=== PATIENT | female | born 1955 | race Caucasian/White ===

== ENCOUNTER → 2023-02-20 13:55 | Outpatient (BNVA) | payer MEDICARE, SELFPAY | PROVIDERS: PCP Nurse Practitioner Family; Visit Provider Nurse Practitioner Family | DX: E03.9 Hypothyroidism, unspecified (principal); E78.5 Hyperlipidemia, unspecified; I10 Essential (primary) hypertension | CPT/HCPCS: 80053; 80061; 84443; 85025 ==

== ENCOUNTER → 2023-05-17 09:30 | Outpatient (BNVA) | payer MEDICARE, SELFPAY | PROVIDERS: PCP Nurse Practitioner Family; Referring Provider Nurse Practitioner Family; Visit Provider Psychiatry & Neurology Neurology | DX: R41.3 Other amnesia (principal); E55.9 Vitamin D deficiency, unspecified | CPT/HCPCS: 0346U; 36415; 82306; 82542; 82607; 82746; 83735; 83921; 99203 ==

== ENCOUNTER 2023-05-30 09:41 | Oncology outpatient (recurring) (ONCR) | payer MEDICARE, SELFPAY ==
[2023-05-30 11:20] LABS: Basophils % 0.6 %; Eosinophils # 0.3 10^3/uL (0.0-0.8); Eosinophils % 4.2 %; Hematocrit 43.8 % (36-47); Lymphocytes # 1.9 10^3/uL (0.8-4.8); Lymphocytes % 28.1 %; Mean Corpuscular HGB Conc 32.9 g/dL (30-55); Mean Corpuscular Hemoglobin 30.8 pg (27-33); Mean Corpuscular Volume 93.6 fl (85-98); Mean Platelet Volume 9.9 fL (7.4-10.4); Monocytes # 0.5 10^3/uL (0.2-0.9); Monocytes % 7.2 %; Neutrophils # 4.09 10^3/uL (1.8-7.7); Neutrophils % 59.8 %; Nucleated Red Blood Cells % 0 %; Platelet Count 194 10^3/cmm (157-399); Red Blood Count 4.68 10^6/uL (3.85-5.65); White Blood Count 6.84 10^3/uL (3.29-11.43)
[2023-05-30 11:34] LABS: Alanine Aminotransferase 11 U/L (0-33); Albumin Level 4.2 g/dL (3.5-5.2); Alkaline Phosphatase 110 U/L (35-105); Anion Gap 12.6 (5-19); Aspartate Amino Transferase 19 U/L (0-32); Blood Urea Nitrogen 21 mg/dL (8-23); Calcium 9.5 mg/dL (8.5-10.5); Carbon Dioxide 30 mmol/L (22-29); Chloride 101 mmol/L (98-107); Globulin 3.2 g/dL (1.3-4.6); Glomerular Filtration Rate 71.3 mL/min (90-130); Glucose 96 mg/dL (65-115); Osmolality Calculated 291 mOsm/kg (285-295); Potassium 4.6 mmol/L (3.5-5.1); Sodium 139 mmol/L (136-145); Total Bilirubin 1.1 mg/dL (0.15-1.2); Total Protein 7.4 g/dL (6.6-8.7)
== END 2023-06-21 23:59 | disposition home or self-care (01) ==
PROVIDERS: Internal Medicine; PCP Nurse Practitioner Family; Visit Provider Internal Medicine Medical Oncology
DX: E53.8 Deficiency of other specified B group vitamins (principal); Z79.899 Other long term (current) drug therapy
CPT/HCPCS: 36415; 80053; 85025; 99203

== ENCOUNTER → 2023-06-28 12:44 | Outpatient (BNVA) | payer MEDICARE, SELFPAY | PROVIDERS: PCP Nurse Practitioner Family; Visit Provider Psychiatry & Neurology Neurology | DX: R41.3 Other amnesia (principal) | CPT/HCPCS: 95812; 95813; 95816 ==

== ENCOUNTER → 2023-08-02 09:16 | Outpatient (BNVA) | payer MEDICARE, SELFPAY | PROVIDERS: PCP Nurse Practitioner Family; Visit Provider Psychiatry & Neurology Neurology | DX: R41.3 Other amnesia (principal); E53.8 Deficiency of other specified B group vitamins | CPT/HCPCS: 99212 ==

== ENCOUNTER → 2023-08-08 10:02 | Outpatient (BNVA) | payer MEDICARE, SELFPAY | PROVIDERS: PCP Nurse Practitioner Family; Visit Provider Nurse Practitioner Family | DX: I83.91 Asymptomatic varicose veins of right lower extremity (principal); E03.9 Hypothyroidism, unspecified; R13.10 Dysphagia, unspecified; E53.8 Deficiency of other specified B group vitamins; Z86.39 Personal history of other endocrine, nutritional and metabolic disease; Z79.899 Other long term (current) drug therapy | CPT/HCPCS: 80053; 80061; 83036; 84443; 85025 ==

== ENCOUNTER 2023-08-20 13:41 | Outpatient (CLI) | payer MEDICARE, SELFPAY ==
--- NOTE | 2023-08-20 14:00 | USCV_ITS ---
Vijaya Engle Age: 67 Gender: F : 1955 Exam Date: 08/20/2023 14:26 Ordering Phys: Margaret Alvarez CORE STRIPPER-Hawa Technologist: Keyon Mark [place] [facility] [place]: Rt leg varicosities PROCEDURES: Venous duplex imaging was performed in only the right lower extremity. The following venous structures were evaluated: common femoral vein, profunda vein, proximal portion of the greater saphenous vein, superficial femoral vein, and the popliteal vein. In addition, the posterior tibial and peroneal trunk were evaluated. FINDINGS: Normal 2-D Doppler and augmentation and compressibility throughout the lower extremity venous structures. Additional imaging through the proximal calf veins also reveals no thrombus. Limited evaluation of the greater saphenous vein is patent with no thrombus. CONCLUSIONS No DVT right lower extremity. Dr. Imelda Haas DO (Electronically Signed) Final Date: 20 August 2023 16:09 S
== END 2023-08-20 13:42 | disposition home or self-care (01) ==
LOC: RAD 13:42
PROVIDERS: PCP Nurse Practitioner Family; Visit Provider Nurse Practitioner Family
DX: I83.91 Asymptomatic varicose veins of right lower extremity (principal)
CPT/HCPCS: 93971

== ENCOUNTER → 2023-09-17 09:36 | Outpatient (BNVA) | payer MEDICARE, SELFPAY | PROVIDERS: PCP Nurse Practitioner Family; Referring Provider Nurse Practitioner Family; Visit Provider Thoracic Surgery (Cardiothoracic Vascular Surgery) | DX: I83.93 Asymptomatic varicose veins of bilateral lower extremities (principal) | CPT/HCPCS: 99202 ==

== ENCOUNTER 2023-09-25 08:46 | Outpatient (CLI) | payer MEDICARE, SELFPAY ==
--- NOTE | 2023-09-25 09:15 | USCV_ITS ---
Vijaya Engle Age: 67 Gender: F : 1955 Exam Date: 09/25/2023 09:18 Ordering Phys: Benjamin Dumont MD (Andy) ([email or web address]) Technologist: JOEY [place] [facility] [place]: H[place]ORY: Varicose veins. PROCEDURES: Venous duplex imaging was performed in bilateral lower extremities. Serial compression, augmentation maneuvers, and spectral Doppler flow evaluation were performed. An evaluation for venous insufficiency was also completed. FINDINGS: The veins were found to be easily compressible with spontaneous blood flow. On the right side, venous reflux were noted at the saphenofemoral junction, distal and below-knee greater saphenous vein segments. The venous segments were measuring 0.4 and 0.3 cm in diameter at the distal and below-knee segments and were at a depth of 1.4 and 0.5 cm respectively from the surface. The reflux time was 2.88, 5 and 5 seconds at the saphenofemoral junction, distal and below-knee segments respectively. On the left side, significant reflux were noted at the saphenofemoral junction and mid greater saphenous vein segment. The mid to greater saphenous vein segment was found to be at the depth of 2.1 cm, measuring 0.3 cm in diameter. The reflux time where 3 and 3.9 seconds at the saphenofemoral junction and mid greater saphenous vein segments respectively CONCLUSIONS 1. No evidence of DVT in the above-mentioned identifiable veins. 2. Significant venous reflux of greater than 500 ms were noted at the right saphenofemoral junction, distal and below-knee segments of the greater saphenous vein. The below-knee greater saphenous vein segment was found to be superficial. 3. On the left side Significant venous reflux of greater than 500 ms were noted at the saphenofemoral junction and at the mid greater saphenous vein segments. The details of the venous dimension, reflux time and the depth from the surface, please refer to the findings above. Dr Geraldo Barron MD FAC (Electronically Signed) Final Date: 27 September 2023 09:15 S
== END 2023-09-25 08:47 | disposition home or self-care (01) ==
LOC: RAD 08:46
PROVIDERS: PCP Nurse Practitioner Family; Visit Provider Thoracic Surgery (Cardiothoracic Vascular Surgery)
DX: I83.93 Asymptomatic varicose veins of bilateral lower extremities (principal)
CPT/HCPCS: 93970

== ENCOUNTER 2023-10-02 09:01 | Outpatient (CLI) | payer MEDICARE, SELFPAY ==
--- NOTE | 2023-10-02 09:00 | MM_ITS ---
WS: [id number] BILATERAL 3D TOMOSYNTHESIS DIGITAL SCREENING MAMMOGRAPHY WITH CAD CLINICAL INFORMATION: SCREENING HISTORY: Screening mammogram. No current complaints. COMPARISON: 2020 TECHNIQUE: Bilateral CC and MLO views. FINDINGS: Loop recorder visualized LEFT breast. Scattered fibroglandular densities bilaterally. No suspicious focal mass, asymmetry, calcifications, or architectural distortion. No evidence of malignancy. Few incidental punctate calcifications. IMPRESSION: MM/[place] [id number] BI-RADS: 2-Benign FOLLOW UP: 1 Year Follow-up Recommend return to annual screening mammography.
== END 2023-10-02 09:02 | disposition home or self-care (01) ==
LOC: MOBLMAM 09:12
PROVIDERS: PCP Nurse Practitioner Family; Visit Provider Nurse Practitioner Family
DX: Z12.31 Encounter for screening mammogram for malignant neoplasm of breast (principal)
CPT/HCPCS: 77063; 77067

== ENCOUNTER 2023-10-17 08:34 | Outpatient (CLI) | payer MEDICARE, SELFPAY ==
--- NOTE | 2023-10-17 08:38 | FL_ITS ---
WS: [id number] Exam: FL barium swallow [id number] Date/Time of Exam: 10/17/2023 9:31 AM Reason For Exam: Dysphagia Fluoroscopy time: 2min [id number] minutes # of spot films: Oropharyngeal phase of swallowing was normal. The esophagus is smooth in contour. No indication of es ophageal stricture or mass. Grossly normal motility noted throughout the esophagus. The esophagus was not displaced. No hiatal hernia was demonstrated. No reflux observed during fluoroscopy. IMPRESSION: 1. Unremarkable esophagram.
--- NOTE | 2023-10-17 08:38 | CT_ITS ---
WS: [id number] CT NECK TECHNIQUE: Contrast-enhanced CT of the neck with coronal and sagittal reformatted images. CLINICAL INFORMATION: Dysphagia COMPARISON: None. DLP: 163.[address] [facility] use at least one of these dose optimization techniques: automated e xposure control; mA and/or kV adjustment per patient size (includes targeted exams where dose is matc hed to clinical indication); or iterative reconstruction. FINDINGS: Partially visualized RIGHT temporal craniotomy with low-attenuation change in the RIGHT temporal lobe . No prior intracranial imaging for comparison. This could be followed up with CT. Paranasal sinuses and mastoid air cells are well aerated. Parotid glands are normal. Normal submandibular glands. Flory l posterior nasopharynx and parapharyngeal fat. No evidence of supraglottic or glottic mass. Normal s ubglottic airway. Normal vallecula and piriform sinuses. Slight hazy atelectasis in the lung apices. No cervical lymphadenopathy. IMPRESSION: 1. Normal salivary glands. 2. No evidence of supraglottic or glottic mass. Normal subglottic airway. 3. No cervical lymphadenopathy. 4. Partially visualized RIGHT temporal craniotomy with underlying encephalomalacia in the RIGHT temp oral lobe. No prior comparisons. This be further evaluated with CT if indicated.
[2023-10-17 09:14] LABS: Blood Urea Nitrogen 13 mg/dL (8-23); Glomerular Filtration Rate 71.3 mL/min (90-130)
[2023-10-17] MEDS: iohexol 350 mg/mL 500 mL Btl (per mL) IV (09:23)
== END 2023-10-17 08:35 | disposition home or self-care (01) ==
LOC: RAD 08:34
PROVIDERS: PCP Nurse Practitioner Family; Visit Provider Specialist
DX: R13.10 Dysphagia, unspecified (principal); G93.89 Other specified disorders of brain
CPT/HCPCS: 70491; 74220; 82565; 84520; Q9967

== ENCOUNTER 2023-10-18 12:48 | Oncology outpatient (recurring) (ONCR) | payer MEDICARE, SELFPAY ==
[2023-10-18 13:55] LABS: Basophils % 0.6 %; Eosinophils # 0.3 10^3/uL (0.0-0.8); Eosinophils % 5.1 %; Hematocrit 44.1 % (36-47); Lymphocytes # 2.2 10^3/uL (0.8-4.8); Lymphocytes % 32.4 %; Mean Corpuscular HGB Conc 33.3 g/dL (30-55); Mean Platelet Volume 9.9 fL (7.4-10.4); Monocytes # 0.4 10^3/uL (0.2-0.9); Monocytes % 6.3 %; Neutrophils # 3.73 10^3/uL (1.8-7.7); Neutrophils % 55.5 %; Nucleated Red Blood Cells % 0 %; Platelet Count 162 10^3/cmm (157-399); Red Blood Count 4.74 10^6/uL (3.85-5.65); Red Cell Distribution Width 13.7 % (12.1-15.1); White Blood Count 6.72 10^3/uL (3.29-11.43)
[2023-10-18 14:17] LABS: Alanine Aminotransferase 9 U/L (0-33); Albumin Level 4.1 g/dL (3.5-5.2); Alkaline Phosphatase 116 U/L (35-105); Anion Gap 12.3 (5-19); Aspartate Amino Transferase 17 U/L (0-32); Blood Urea Nitrogen 15 mg/dL (8-23); Calcium 9.4 mg/dL (8.5-10.5); Carbon Dioxide 29 mmol/L (22-29); Chloride 104 mmol/L (98-107); Globulin 3.3 g/dL (1.3-4.6); Glomerular Filtration Rate 62.3 mL/min (90-130); Glucose 107 mg/dL (65-115); Osmolality Calculated 293 mOsm/kg (285-295); Potassium 4.3 mmol/L (3.5-5.1); Sodium 141 mmol/L (136-145); Total Bilirubin 1.1 mg/dL (0.15-1.2); Total Protein 7.4 g/dL (6.6-8.7)
[2023-10-18 14:50] LABS: Folate Level 15.8 ng/mL (4.8-37.3)
[2023-10-18 14:56] LABS: Vitamin B12 402 pg/mL (232-1245)
== END 2023-10-21 23:59 | disposition home or self-care (01) ==
PROVIDERS: Internal Medicine; PCP Nurse Practitioner Family; Visit Provider Internal Medicine Medical Oncology
DX: E53.8 Deficiency of other specified B group vitamins (principal); Z79.899 Other long term (current) drug therapy
CPT/HCPCS: 36415; 80053; 82607; 82746; 85025; 99213

== ENCOUNTER → 2023-10-31 09:57 | Outpatient (BNVA) | payer MEDICARE, SELFPAY | PROVIDERS: PCP Nurse Practitioner Family; Visit Provider Specialist | DX: E03.9 Hypothyroidism, unspecified (principal) | CPT/HCPCS: 84439; 84443 ==

== ENCOUNTER 2023-11-09 09:33 | Outpatient (CLI) | payer MEDICARE, SELFPAY ==
--- NOTE | 2023-11-09 09:42 | FL_ITS ---
WS: [id number] Exam: FL barium swallow modifd [id number] Date/Time of Exam: 11/09/2023 10:11 AM Reason For Exam: Other dysphagia Fluoroscopy time: 2min [id number] minutes # of spot films: 0 Modified barium swallow was performed in conjunction with the speech therapy service. Oral pharyngeal phase of swallowing was normal. The patient tolerated all consistencies of barium mix ture foodstuffs without aspiration or penetration. The patient swallowed a barium tablet without diff iculty or complication. IMPRESSION: 1. Unremarkable modified barium swallow test. A separate report and recommendations will follow from the speech therapy service.
== END 2023-11-09 09:34 | disposition home or self-care (01) ==
LOC: RAD 09:35
PROVIDERS: PCP Nurse Practitioner Family; Visit Provider Specialist
DX: R13.10 Dysphagia, unspecified (principal)
CPT/HCPCS: 74230; 92611

== ENCOUNTER → 2023-12-10 11:30 | Outpatient (BNVA) | payer MEDICARE, SELFPAY | PROVIDERS: PCP Nurse Practitioner Family; Visit Provider Nurse Practitioner Family | DX: R05.9 Cough, unspecified (principal) | CPT/HCPCS: 71046 ==

== ENCOUNTER → 2024-01-30 10:27 | Outpatient (BNVA) | payer MEDICARE, SELFPAY | PROVIDERS: PCP Nurse Practitioner Family; Visit Provider Nurse Practitioner Family | DX: R10.9 Unspecified abdominal pain (principal); E11.9 Type 2 diabetes mellitus without complications; E78.5 Hyperlipidemia, unspecified; I10 Essential (primary) hypertension; E53.8 Deficiency of other specified B group vitamins; R10.2 Pelvic and perineal pain; M79.674 Pain in right toe(s); E03.9 Hypothyroidism, unspecified; G47.30 Sleep apnea, unspecified; R32 Unspecified urinary incontinence; Z86.79 Personal history of other diseases of the circulatory system; I83.91 Asymptomatic varicose veins of right lower extremity | CPT/HCPCS: 80053; 80061; 81000; 82607; 83036; 84443; 85025; 86618; 86666; 86757 ==

== ENCOUNTER → 2024-02-04 13:05 | Outpatient (BNVA) | payer MEDICARE, SELFPAY | PROVIDERS: PCP Nurse Practitioner Family; Visit Provider Psychiatry & Neurology Neurology | DX: E53.8 Deficiency of other specified B group vitamins (principal) | CPT/HCPCS: 99212 ==

== ENCOUNTER → 2024-02-25 10:30 | Outpatient (BNVA) | payer MEDICARE, SELFPAY | PROVIDERS: PCP Nurse Practitioner Family; Visit Provider Podiatrist Foot & Ankle Surgery | DX: M79.674 Pain in right toe(s) (principal); L60.3 Nail dystrophy; M77.41 Metatarsalgia, right foot | CPT/HCPCS: 99203 ==

== ENCOUNTER 2024-04-22 11:21 | Oncology outpatient (recurring) (ONCR) | payer MEDICARE, SELFPAY ==
[2024-04-22 12:05] LABS: Basophils # 0.1 10^3/uL (0.0-0.1); Basophils % 0.9 %; Eosinophils # 0.3 10^3/uL (0.0-0.8); Eosinophils % 4.3 %; Hematocrit 42.7 % (36-47); Lymphocytes # 2.4 10^3/uL (0.8-4.8); Lymphocytes % 34.3 %; Mean Corpuscular Hemoglobin 30.9 pg (27-33); Mean Corpuscular Volume 90.9 fl (85-98); Monocytes # 0.4 10^3/uL (0.2-0.9); Monocytes % 6.3 %; Neutrophils # 3.77 10^3/uL (1.8-7.7); Neutrophils % 54.1 %; Nucleated Red Blood Cells % 0 %; Platelet Count 159 10^3/cmm (157-399); Red Cell Distribution Width 13.5 % (12.1-15.1); White Blood Count 6.97 10^3/uL (3.29-11.43)
[2024-04-22 12:26] LABS: Alanine Aminotransferase 11 U/L (0-33); Albumin Level 3.8 g/dL (3.5-5.2); Alkaline Phosphatase 110 U/L (35-105); Anion Gap 14.2 (5-19); Aspartate Amino Transferase 17 U/L (0-32); Blood Urea Nitrogen 13 mg/dL (8-23); Calcium 9.2 mg/dL (8.5-10.5); Carbon Dioxide 26 mmol/L (22-29); Chloride 104 mmol/L (98-107); Globulin 3.5 g/dL (1.3-4.6); Glucose 98 mg/dL (65-115); Osmolality Calculated 290 mOsm/kg (285-295); Potassium 4.2 mmol/L (3.5-5.1); Sodium 140 mmol/L (136-145); Total Bilirubin 0.7 mg/dL (0.15-1.2); Total Protein 7.3 g/dL (6.6-8.7)
[2024-04-22 12:41] LABS: Vitamin B12 690 pg/mL (232-1245)
[2024-04-22 13:14] LABS: Folate Level > 20.0 ng/mL (4.8-37.3)
[2024-04-26 12:59] LABS: Methylmalonic Acid 120 nmol/L (69-390)
== END 2024-05-22 23:59 | disposition home or self-care (01) ==
LOC: ONCMED 11:22
PROVIDERS: Internal Medicine; Nurse Practitioner Family; PCP Clinical Nurse Specialist Adult Health; Visit Provider Internal Medicine Hematology & Oncology
DX: E53.8 Deficiency of other specified B group vitamins (principal); Z79.899 Other long term (current) drug therapy; R10.2 Pelvic and perineal pain; N81.10 Cystocele, unspecified
CPT/HCPCS: 36415; 80053; 82607; 82746; 83921; 85025; 99213

== ENCOUNTER → 2024-06-02 13:38 | Outpatient (BNVA) | payer MEDICARE, SELFPAY | PROVIDERS: PCP Clinical Nurse Specialist Adult Health; Visit Provider Psychiatry & Neurology Neurology | DX: R79.89 Other specified abnormal findings of blood chemistry (principal); E53.8 Deficiency of other specified B group vitamins | CPT/HCPCS: 36415; 82607; 99212 ==

== ENCOUNTER → 2024-07-04 11:02 | Outpatient (BNVA) | payer MEDICARE, SELFPAY | PROVIDERS: PCP Clinical Nurse Specialist Adult Health; Visit Provider Clinical Nurse Specialist Adult Health | DX: E53.8 Deficiency of other specified B group vitamins (principal); E03.9 Hypothyroidism, unspecified; Z91.09 Other allergy status, other than to drugs and biological substances; R51.9 Headache, unspecified | CPT/HCPCS: 80053; 82607; 84443; 85025; 85651; 86140 ==

== ENCOUNTER 2024-08-05 12:05 | Observation (INO) | payer MEDICARE, SELFPAY ==
--- NOTE | 2024-08-04 10:04 | ECG_ITS ---
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: : 1955 Requested By: Chris Pichardo Order Number: [id number] Reading MD: AMBREEN VIRK Measurements Intervals [place] Rate: 85 P: 14 MA: 154 QRS: -15 QRSD: 75 T: -1 QT: 345 QTc: 411 Interpretive Statements SINUS RHYTHM LOW QRS VOLTAGE IN PRECORDIAL LEADS [QRS DEFLECTION < 1.0 mV IN CHEST LEADS] POSSIBLE ANTERIOR MYOCARDIAL INFARCTION , OF INDETERMINATE AGE [30 ms Q WAVE IN V3/V4, OR R < 0.2 mV IN V4] No previous ECG available for comparison Electronically Signed On 08-11-2024 23:31:11 OFFICE SUPPORT CLERK by AMBREEN VIRK [id number]
[2024-08-04 10:11] LABS: Basophils # 0.1 10^3/uL (0.0-0.1); Basophils % 0.7 %; Eosinophils # 0.3 10^3/uL (0.0-0.8); Eosinophils % 3.5 %; Hematocrit 43.5 % (36-47); Lymphocytes # 1.5 10^3/uL (0.8-4.8); Lymphocytes % 21.4 %; Mean Corpuscular HGB Conc 33.1 g/dL (30-55); Mean Corpuscular Hemoglobin 30.6 pg (27-33); Mean Corpuscular Volume 92.6 fl (85-98); Mean Platelet Volume 10.3 fL (7.4-10.4); Monocytes # 0.4 10^3/uL (0.2-0.9); Monocytes % 5.6 %; Neutrophils # 4.84 10^3/uL (1.8-7.7); Neutrophils % 68.4 %; Nucleated Red Blood Cells % 0 %; Platelet Count 192 10^3/cmm (157-399); White Blood Count 7.09 10^3/uL (3.29-11.43)
--- NOTE | 2024-08-04 10:41 | P.ANESASSM_ITS ---
Pre-Anesthetic Assessment Height/Weight: Height 5 ft 3 in Preop Diagnosis: Cystocele Operation Date: 08/05/24 09:25 Proposed Procedures p Anterior Repair Anterior Colporrhaphy 37748, 30119, N81.10, N39.46(Not Applicable) - Chris Gunderson MD s Sling Single Incision Midurethral Sling(Not Applicable) - Chris Gunderson MD Was Beta Todd taken within 24 hours: N/A Was Clonidine taken within 24 hours: N/A Social No alcohol and No tobacco Exam alert, oriented x 3, clear to auscultation bilaterally and regular rate & rhythm Airway Submandibular: within normal limits Cervical ROM: within normal limits Mallampati: Class II Dentition: false Anesthetic Plan ASA status: 3 Anesthesia: General Other: No prior issues with anesthesia Plan to be n.p.o. at midnight tonight History of PAIGE GERD on omeprazole Hypertension on lisinopril Asthma, controlled with inhalers Labs 08/04/2024 reviewed acceptable for procedure Plan for general anesthesia Medications/Allergies Home Medications Medication Instructions Recorded Confirmed Last Taken Type cholecalciferol (vitamin D3) 50 50 mcg PO DAILY 02/20/23 08/04/24 08/04/24 History mcg (2,000 unit) capsule cpap supplies #1 ea 03/16/23 08/01/24 Unknown Rx ascorbic acid 1,000 1 ea PO DAILY 05/30/23 08/04/24 08/03/24 History li-hsjduhnkajbk-fwvuwhok powder effervescent pack (Emergen-C) vitamins A,C,N-ytnf-iahxpy 2,148 2 tab PO DAILY 05/30/23 08/04/24 08/04/24 History mcg-113 mg-45 mg-17.4 mg tablet (PreserVision AREDS) folic acid 800 mcg tablet 0.8 mg PO DAILY 09/17/23 08/04/24 08/04/24 History compressor, for nebulizer #1 ea 12/10/23 08/01/24 Unknown Rx albuterol sulfate 90 mcg/actuation 2 puff inhalation QID PRN 02/11/24 08/04/24 Unknown Rx aerosol inhaler shortness of breath or wheezing #6.7 grams cetirizine 10 mg tablet 10 mg PO DAILY 07/04/24 08/04/24 08/04/24 History levothyroxine 75 mcg tablet 75 mcg PO DAILY #90 tabs 07/04/24 08/04/24 08/04/24 Rx lisinopril 10 mg tablet 10 mg PO DAILY #90 tabs 07/04/24 08/04/24 08/04/24 Rx omeprazole 20 mg capsule,delayed 20 mg PO DAILY #90 caps 07/04/24 08/04/24 08/04/24 Rx release oxybutynin chloride 5 mg tablet 5 mg PO BID #180 tabs 07/04/24 08/04/24 08/04/24 Rx simvastatin 20 mg tablet 20 mg PO DAILY #90 tabs 07/04/24 08/04/24 08/04/24 Rx montelukast 10 mg tablet 10 mg PO DAILY #30 tabs 07/15/24 08/04/24 08/04/24 Rx (Singulair) olopatadine 0.2 % eye drops 1 drp ophthalmic (eye) DAILY #2.5 07/15/24 08/04/24 08/03/24 Rx (Pataday Once Daily Relief) mL Allergies Allergy/AdvReac Type Severity Reaction Status Date / Time cat dander Allergy Severe ALGY-Sneezi Verified 08/01/24 15:47 ng grass pollen Allergy Severe ALGY-Difficulty Verified 08/01/24 15:47 Breathing nicotine Allergy Severe ALGY-Conges Verified 08/01/24 15:47 patricia tree and shrub pollen Allergy Severe ALGY-Difficulty Verified 08/01/24 15:47 Breathing PFSH Anesthesia Medical History TIA (transient ischemic attack) Mixed incontinence Hypothyroidism Vitamin D deficiency History of asthma POP-Q stage 2 cystocele PAIGE (obstructive sleep apnea) uses cpap Environmental allergies Low serum vitamin B12 Acid reflux Surgical History Hx of shoulder replacement right shoulder Hx of brain surgery aneurysm history Hx of appendectomy Family History Father Cancer Colon Cancer Other AAA (abdominal aortic aneurysm) Colon cancer Social History Smoking and tobacco/nicotine status: never used tobacco/nicotine Second hand smoke exposure: No Alcohol intake: never Substance/Drug Use: never Adopted: No Lives independently: Yes Household members: none Housing: House Marital status: Number of children: 1 service: No Current occupational status: retired Data Anesthesia 08/04/24 09:50 08/04/24 09:50 Short CBC 08/04/24 Range/Units 09:50 WBC 7.09 (3.29-11.43) 10^3/uL Hgb 14.40 (11.27-16.99) g/dL Hct 43.5 (36-47) % MCV 92.6 (85-98) fl Plt Count 192 (157-399) 10^3/cmm Neut % (Auto) 68.4 % Neut # (Auto) 4.84 (1.8-7.7) 10^3/uL Cardiac Studies: 2 No Data to Display
[2024-08-04 10:56] LABS: Alanine Aminotransferase 16 U/L (0-33); Albumin Level 3.9 g/dL (3.5-5.2); Alkaline Phosphatase 109 U/L (35-105); Anion Gap 19.1 (5-19); Aspartate Amino Transferase 31 U/L (0-32); Blood Urea Nitrogen 12 mg/dL (8-23); Calcium 9.6 mg/dL (8.5-10.5); Carbon Dioxide 22 mmol/L (22-29); Chloride 102 mmol/L (98-107); Globulin 3.2 g/dL (1.3-4.6); Glucose 217 mg/dL (65-115); Osmolality Calculated 294 mOsm/kg (285-295); Potassium 4.1 mmol/L (3.5-5.1); Sodium 139 mmol/L (136-145); Total Bilirubin 1.9 mg/dL (0.15-1.2); Total Protein 7.1 g/dL (6.6-8.7)
[2024-08-05] VITALS (16 sets, daily range): BP systolic 105–131; BP diastolic 55–82; PULSE 64–87; RESP 16–18; TEMP 36.3–37.1; O2SAT 92–100; BMI 34.0
[2024-08-05 08:03] LABS: Add Urine Microscopic? YES; Bacteria Urine None Seen /hpf; Bilirubin Urine 1+ (Negative); Blood Urine Negative (Negative); Glucose Urine UA Negative (Normal); Hyaline Casts Urine 0-4 /lpf; Ketones Urine Trace (Negative); Leukocyte Esterase Urine Negative (Negative); Nitrate Urine Negative (Negative); Protein Urine 1+ (Negative); Squamous Epithelial Cell Urine 0-5 /hpf (0-5); Urine Appearance Turbid (CLEAR); WBC Urine 0-5 /hpf (0-5)
[2024-08-05 08:04] LABS: Amorphous Sediment Urine 3+ /hpf; Calcium Oxalate Crystals Urine 15-25 /hpf; Specific Gravity, Urine 1.033 (1.005-1.030); UA Slide Review UA Slide Review Perf; Urine Color Orange (Yellow)
[2024-08-05] MEDS: sodium chloride 0.9% 1,000 ML 30 ML IV (09:41)
[2024-08-05] MEDS: enoxaparin 30 mg/0.3 mL Syringe SUBCUT (09:42)
[2024-08-05] MEDS: ceFAZolin 2,000 mg SDV 2000 MG IVP (09:43)
--- NOTE | 2024-08-05 09:48 | P.ANESUD_ITS ---
Pre-Anesthetic Update Pre-Anesthetic Assessment: Date of Surgery/Procedure: 08/05/24 Preop Cindy gnosis: Cystocele, urinary incontinence Proposed Procedure: Operation Date: 08/05/24 10:15 Proposed Procedures p Anterior Repair Anterior Colporrhaphy 12845, 93172, N81.10, N39.46(Not Applicable) - Chris Gunderson MD s Sling Single Incision Midurethral Sling(Not Applicable) - Chris Gunderson MD Changes from Pre-Anesthetic Assessment: No changes from yesterday, plan for general anesthetic Last Intake: Intake Last Liquid Date 08/04/24 Last Liquid Time 00:00 Last Solid Date 08/04/24 Last Solid Time 00:00 Labs Last 48hrs: Short CBC 08/04/24 Range/Units 09:50 WBC 7.09 (3.29-11.43) 10^ 3/uL Hgb 14.40 (11.27-16.99) g/ dL Hct 43.5 (36-47) % MCV 92.6 (85-98) fl Plt Count 192 (157-399) 10^3/c mm Neut % (Auto) 68.4 % Neut # (Auto) 4.84 (1.8-7.7) 10^3/u L BMP 08/04/24 09:50 Sodium 139 Potassium 4.1 Chloride 102 Carbon Dioxide 22 BUN 12 Creatinine 1.0 H Glucose 217 H Calcium 9.6 Liver Function 08/04/24 Range/Units 09:50 Total Bilirubin 1.9 H (0.15-1.2) mg/dL AST 31 (0-32) U/L ALT 16 (0-33) U/L Alkaline Phosphata se 109 H (35-105) U/L Albumin 3.9 (3.5-5.2) g/dL Urine 08/04/24 Range/Units 10:38 Urine Color [place] A (Yellow) Urine Appearance Turbid A (CLEAR) Urine pH 5.0 (5-7) Ur Specific Gravit y 1.033 H (1.005-1.030) Urine Protein 1+ A (Negative) Urine Glucose (UA) Negative (Normal) Urine Ketones Trace (Negative) Urine Nitrate Negative (Negative) Urine Bilirubin 1+ H (Negative) Ur Leukocyte Ana Paula ase Negative (Negative) Urine RBC 3-5 (0-2) /hpf Urine WBC 0-5 (0-5) /hpf Blood Bank 08/04/24 09:50 Blood Type Cancelled Rho(D) Type Cancelled Antibody Screen Cancelled Vitals: Temperature 98.7 F 08/05/24 08:57 Temperature Source Temporal Artery S can 08/05/24 08:57 Pulse Rate 87 08/05/24 08:57 Respiratory Rate 16 08/05/24 08:57 Blood Pressure 123/82 08/05/24 08:57 Blood Pressure Zoila n 95 08/05/24 08:57 Pulse Oximetry 96 08/05/24 08:57 Oxygen Delivery Me thod Room Air 08/05/24 09:13 Cardiac Studies: No Data to Display
[2024-08-05 09:57] LABS: INR 0.89 (0.8-1.2)
--- NOTE | 2024-08-05 10:16 | W.PM.OPSUD ---
Surgery/Procedure H&P Update DATE OF PROCEDURE: August 05, 2024 DATE H&P PERFORMED: 08/01/24 H&P UPDATE INFORMATION: I have reviewed H&P completed within last 30 days, I have examined patient prior to procedure and No changes to prior documentation PREOP DIAGNOSIS: Cystocele, urinary incontinence PLANNED PROCEDURE: Operation Date: 08/05/24 10:15 Proposed Procedures p Anterior Repair Anterior Colporrhaphy 46879, 93002, N81.10, N39.46(Not Applicable) - Chris Gunderson MD s Sling Single Incision Midurethral Sling(Not Applicable) - Chris Gunderson MD
[2024-08-05] MEDS: lidocaine-epi 2% PF 1:200,000 20 mL SDV INJECTION (10:58)
--- NOTE | 2024-08-05 11:33 | PM.OP ---
Operative Report Date of procedure: August 05, 2024 Pre-op diagnosis: Cystocele stage II Mixed urinary incontinence Post-op diagnosis: same Procedure done: Anterior colporrhaphy Mid urethral sling Cystoscopy Implants: Coloplast Altis midurethral sling Surgeon: Chris Gunderson MD Estimated blood loss (mL): 150 IV fluids (mL): 1,000 Urine output (mL): 100 Complications: none Findings: Cystocele Procedure: After obtaining informed consent, the patient was taken to the operating room and placed in the supine position, given general anesthesia, and prepped and draped in sterile fashion. The abdomen, vulva and vagina were prepped and draped in a sterile manner. A time out procedure was performed. The anterior vaginal mucosa beneath the midurethra was infiltrated with 2% lidocaine with epinephrine. A vertical midline incision was made beneath the midurethra, nearly 1.5 cm length. Careful submucosal dissection was performed bilaterally up to the interior portion of the inferior pubic ramus. The insertion of adductor longus tendon on the patient?s pubic ramus was identified as reference land lety. Palpated the notch along the internal edge of ischiopubic ramus where the adductor longus tendon and the inferior pubic ramus meet. The Altis single incision sling (SIS) was selected. Then the needle of the SIS inserted aiming at the location of this notch. One of the integrated self-fixating tips place onto the needle by sliding it over the end of the needle. The needle/sling assembly was inserted toward the location of identified reference notch making sure that the flat of the handle is perpendicular to the desired path. The needle was tracked along the posterior surface of the ischiopubic ramus until the midline lety on the mesh is approximately at the midline position under the urethra. The needle was removed and the same was repeated on the contralateral side until the appropriate sling tension under the urethra was achieved ensuring that the mesh lays flat. The needle was removed and vaginal incision was closed in a running interlocking fashion with 2-0 Vicryl. An anterior repair was then performed. The medial portion of the anterior vaginal wall was grasped with two Allis clamps and the mucosa was infiltrated with the previous 2% lidocaine with epinephrine solution. The Metzenbaum scissors were used to dissect and undermine a plane medially up to the point of reflexion anteriorly of the bladder. The vaginal mucosa was incised medially. This tissue was then grasped with Nelsy clamps and dissected away with a combination of sharp and blunt dissection on both sides. A suture of 2-0 vicryl was then used to connect the lateral pubovesical connective tissue on either side together in a series of bites that was repeated in two layers. The excess vaginal mucosa was trimmed and the incision repaired with a locked suture of 0 vicryl. Then the Boykin catheter was removed and cystoscope was inserted. The bladder was filled with sterile water. Complete evaluation of the bladder mucosa was performed noting no lacerations, dimpling, tears, bleeding of the mucosa or muscular layers. Both ureteral orifices were identified. Prompt excretion of urine from both ureteral orifices was noted. Cystoscope was withdrawn. The Boykin catheter was replaced. Excellent hemostasis was obtained. A vaginal pack is placed overnight as postoperative support for the vaginal tissues after graft placement and closure of vaginal incisions. Sponge, lap, needle, and instrument counts were correct times three. The patient was taken to the recovery room, awake and in stable condition.
--- NOTE | 2024-08-05 12:19 | ANE.PACU2 ---
Inpatient post-anesthesia follow up: Airway intact: Yes Vital signs: Temperature 98 F Pulse Rate 63 Respiratory Rate 16 Blood Pressure 120/70 Pulse Oximetry 96 Oxygen Delivery Me thod Room Air Oxygen Flow Rate 8 Fraction of Inspir ed Oxygen Hydration adequate: Yes Nausea and vomiting: No Pain level: 1 Mental status: Baseline
[2024-08-05] MEDS: ketorolac 30 mg/mL INJ IVP ×2 (13:22→19:33)
[2024-08-05] MEDS: oxyCODONE-APAP 5-325 mg Tablet PO (16:32)
[2024-08-05] MEDS: cetylpyridinium Lozenge 1 EACH MUCOUS MEM (16:33)
[2024-08-05] MEDS: cetirizine 10 mg Tablet PO (16:34)
[2024-08-05] MEDS: docusate sodium 100 mg Capsule PO (18:08)
[2024-08-05] MEDS: oxybutynin 5 mg Tablet PO (18:08)
[2024-08-05] MEDS: simethicone 80 mg Chew PO (19:33)
[2024-08-06] MEDS: sodium chloride 0.9% 500 ML 999 ML IV (00:30)
[2024-08-06] MEDS: ketorolac 30 mg/mL INJ IVP ×2 (01:26→07:28)
[2024-08-06 04:00] VITALS: BP 120/70; PULSE 63; RESP 18; TEMP 36.6; O2SAT 96
[2024-08-06 04:58] VITALS: RESP 18
[2024-08-06] MEDS: oxyCODONE-APAP 5-325 mg Tablet PO ×2 (04:58→10:32)
[2024-08-06 05:21] LABS: Hematocrit 35.7 % (36-47); Mean Corpuscular HGB Conc 33.1 g/dL (30-55); Mean Corpuscular Hemoglobin 31.6 pg (27-33); Mean Corpuscular Volume 95.5 fl (85-98); Mean Platelet Volume 10.2 fL (7.4-10.4); Platelet Count 139 10^3/cmm (157-399); Red Blood Count 3.74 10^6/uL (3.85-5.65); White Blood Count 9.08 10^3/uL (3.29-11.43)
--- NOTE | 2024-08-06 05:21 | PC.NURSE ---
Vaginal packing discontinued. Patient tolerated the procedure well. Scant bleeding noted.
[2024-08-06] MEDS: cetirizine 10 mg Tablet PO (07:47)
[2024-08-06] MEDS: oxybutynin 5 mg Tablet PO (07:48)
[2024-08-06] MEDS: atorvastatin 40 mg Tablet PO (07:48)
[2024-08-06] MEDS: cholecalciferol (vitamin D3) 1,000 unit Tablet 2000 UNIT PO (07:49)
[2024-08-06] MEDS: levothyroxine 25 mcg Tablet 75 MCG PO (07:49)
[2024-08-06] MEDS: docusate sodium 100 mg Capsule PO (07:49)
[2024-08-06] MEDS: folic acid 1 mg Tablet 0.75 MG PO (08:23)
[2024-08-06] MEDS: montelukast sodium 10 mg Tablet PO (08:30)
[2024-08-06 10:00] VITALS: BP 154/84; PULSE 72; RESP 16; TEMP 36.6; O2SAT 96
--- NOTE | 2024-08-06 10:14 | PM.OBGYDC ---
Discharge Providers INSTRUCTIONAL COACH Date of Admission: 08/05/24 12:05 Date of Discharge: 08/06/24 Attending Provider at Admission: Chris Gunderson MD Attending Provider at Discharge: Chris Gunderson MD Primary Care Provider: Victor Manuel L [facility] Hospital Course Mrs. Engle 68-year-old female with a history of cystocele and mixed urinary incontinence. Admitted for planned anterior colporrhaphy and mid urethral sling. The procedures were performed without complication. Overnight observation was uneventful. She is afebrile and hemodynamically stable postoperative day 1. Tolerating diet well. Ambulating without difficulty. PVR within normal limits. She was counseled regarding pelvic rest for 6 weeks (no sex, no tampons, no vaginal douches). Return to the emergency room if any fever, increased bleeding or pain. Physical Exam Narrative: GA: Alert and oriented ?3. HEENT: WNL. Heart: Regular rate and rhythm. Lungs: Clear to auscultation bilaterally. Abdomen: Bowel sounds present, nontender. POT FLUXER: spotting bleeding. Extremities: No edema, no cyanosis, no calves pain. Urinary Catheter Management: [place]: Cath Placed During This Visit: yes, but has since been removed by the nurse Reason for Continuing Indwelling Catheter: Decision to DC Catheter Urinary Catheter Date of Insertion: 08/05/24 Urinary Catheter Time of Insertion: 10:48 Date Urinary Catheter Removed: 08/06/24 Time Urinary Catheter Discontinued: 05:15 History History History 4 Term 1 0 Miscarriages/Ectopic 3 Living Children 1 Discharge Data Studies Completed and Pending Pending at discharge Category Date Time Status Urine Culture Routine Lab 08/04/24 10:38 Results Laboratory Results WBC 9.08 10^3/uL (3.29-11.43) 08/06/24 05:10 RBC 3.74 10^6/uL (3.85-5.65) L 08/06/24 05:10 Hgb 11.80 g/dL (11.27-16.99) 08/06/24 05:10 Hct 35.7 % (36-47) L 08/06/24 05:10 MCV 95.5 fl (85-98) 08/06/24 05:10 MCH 31.6 pg (27-33) 08/06/24 05:10 MCHC 33.1 g/dL (30-55) 08/06/24 05:10 RDW 14.0 % (12.1-15.1) 08/06/24 05:10 Plt Count 139 10^3/cmm (157-399) L 08/06/24 05:10 MPV 10.2 fL (7.4-10.4) 08/06/24 05:10 Neut % (Auto) 68.4 % 08/04/24 09:50 Lymph % (Auto) 21.4 % 08/04/24 09:50 Ransom % (Auto) 5.6 % 08/04/24 09:50 Eos % (Auto) 3.5 % 08/04/24 09:50 Baso % (Auto) 0.7 % 08/04/24 09:50 Neut # (Auto) 4.84 10^3/uL (1.8-7.7) 08/04/24 09:50 Lymph # (Auto) 1.5 10^3/uL (0.8-4.8) 08/04/24 09:50 Ransom # (Auto) 0.4 10^3/uL (0.2-0.9) 08/04/24 09:50 Eos # (Auto) 0.3 10^3/uL (0.0-0.8) 08/04/24 09:50 Baso # (Auto) 0.1 10^3/uL (0.0-0.1) 08/04/24 09:50 Nucleated RBC % (auto) 0 % 08/04/24 09:50 Nucleated RBCs # 0.0 /100WBC 08/04/24 09:50 PT 12.60 SECONDS (12.1-14.9) 08/05/24 09:20 INR 0.89 (0.8-1.2) 08/05/24 09:20 Sodium 139 mmol/L (136-145) 08/04/24 09:50 Potassium 4.1 mmol/L (3.5-5.1) 08/04/24 09:50 Chloride 102 mmol/L (98-107) 08/04/24 09:50 Carbon Dioxide 22 mmol/L (22-29) 08/04/24 09:50 Anion Gap 19.1 (5-19) H 08/04/24 09:50 BUN 12 mg/dL (8-23) 08/04/24 09:50 Creatinine 1.0 mg/dL (0.5-0.9) H 08/04/24 09:50 GFR Calculation 55.0 mL/min (90-130) L 08/04/24 09:50 Glucose 217 mg/dL (65-115) H 08/04/24 09:50 Calculated Osmolality 294 mOsm/kg (285-295) 08/04/24 09:50 Calcium 9.6 mg/dL (8.5-10.5) 08/04/24 09:50 Total Bilirubin 1.9 mg/dL (0.15-1.2) H 08/04/24 09:50 AST 31 U/L (0-32) 08/04/24 09:50 ALT 16 U/L (0-33) 08/04/24 09:50 Alkaline Phosphatase 109 U/L (35-105) H 08/04/24 09:50 Total Protein 7.1 g/dL (6.6-8.7) 08/04/24 09:50 Albumin 3.9 g/dL (3.5-5.2) 08/04/24 09:50 Globulin 3.2 g/dL (1.3-4.6) 08/04/24 09:50 Urine Color [place] (Yellow) A 08/04/24 10:38 Urine Appearance Turbid (CLEAR) A 08/04/24 10:38 Urine pH 5.0 (5-7) 08/04/24 10:38 Ur Specific [place] 1.033 (1.005-1.030) H 08/04/24 10:38 Urine Protein 1+ (Negative) A 08/04/24 10:38 Urine Glucose (UA) Negative (Normal) 08/04/24 10:38 Urine Ketones Trace (Negative) 08/04/24 10:38 Urine Blood Negative (Negative) 08/04/24 10:38 Urine Nitrate Negative (Negative) 08/04/24 10:38 Urine Bilirubin 1+ (Negative) H 08/04/24 10:38 Urine Urobilinogen 1.0 mg/dL (Negative) 08/04/24 10:38 Ur Leukocyte Esterase Negative (Negative) 08/04/24 10:38 Urine RBC 3-5 /hpf (0-2) 08/04/24 10:38 Urine WBC 0-5 /hpf (0-5) 08/04/24 10:38 Ur Squamous Epith Cells 0-5 /hpf (0-5) 08/04/24 10:38 Calcium Oxalate Crystal 15-25 /hpf H 08/04/24 10:38 Amorphous Sediment 3+ /hpf 08/04/24 10:38 Urine Bacteria None seen /hpf (NONE) 08/04/24 10:38 Hyaline Casts 0-4 /lpf H 08/04/24 10:38 Blood Type O Negative 08/05/24 09:20 Rho(D) Type Rh negative 08/05/24 09:20 Antibody Screen Negative 08/05/24 09:20 Vitals Last Vital Signs Temp 98 F 08/06/24 04:00 Pulse 63 08/06/24 04:00 Resp 18 08/06/24 04:58 BP 120/70 08/06/24 04:00 Pulse Ox 96 08/06/24 04:00 O2 Del Method Room Air 08/06/24 04:00 O2 Flow Rate 8 08/05/24 11:54 Results Labs OB ([facility]): Blood Type O Negative 08/05/24 Antibody Screen Negative 08/05/24 Hct 35.7 % (36-47) L 08/06/24 Hgb 11.80 g/dL (11.27-16.99) 08/06/24 Rho(D) Type Rh negative 08/05/24 Plt Count 139 10^3/cmm (157-399) L 08/06/24 TSH 1.99 uIU/mL (0.27-4.20) 07/04/24 Free T4 1.52 ng/dL (0.82-1.77) 10/31/23 Hemoglobin A1c 5.7 % (4.0-6.0) 01/30/24 Micro Urine Specimen 08/04/24 Discharge Plan Discharge Patient Disposition: Home Condition: Stable Prescriptions: New hydrocodone-acetaminophen 5-325 mg tablet 1 tab PO Q4H PRN (Reason: pain) Qty: 10 0RF acetaminophen 325 mg capsule 325 mg PO Q4H PRN (Reason: fever or pain) Qty: 60 0RF ibuprofen 800 mg tablet 800 mg PO TID PRN (Reason: pain) Qty: 60 0RF nitrofurantoin macrocrystal 100 mg capsule 100 mg PO BID 3 Days Qty: 6 0RF Rx Instructions: must administer with a meal/food Continued cholecalciferol (vitamin D3) 50 mcg (2,000 unit) capsule 50 mcg PO DAILY Emergen-C 1,000 mg powder effervescent in packet 1 ea PO DAILY Rx Instructions: when cold symptoms start PreserVision AREDS 2,148 mcg-113 mg-45 mg-17.4mg tablet 2 tab PO DAILY Rx Instructions: administer with AM and PM meals folic acid 800 mcg tablet 0.8 mg PO DAILY (DME) compressor, for nebulizer Device See Rx Instructions .Route Qty: 1 0RF Rx Instructions: As directed cetirizine 10 mg tablet 10 mg PO DAILY levothyroxine 75 mcg tablet 75 mcg PO DAILY Qty: 90 3RF lisinopril 10 mg tablet 10 mg PO DAILY Qty: 90 3RF omeprazole 20 mg capsule,delayed release(DR/EC) 20 mg PO DAILY Qty: 90 3RF oxybutynin chloride 5 mg tablet 5 mg PO BID Qty: 180 3RF simvastatin 20 mg tablet 20 mg PO DAILY Qty: 90 3RF montelukast [Singulair] 10 mg tablet 10 mg PO DAILY Qty: 30 3RF olopatadine [Pataday Once Daily Relief] 0.2 % drops 1 drp ophthalmic (eye) DAILY Qty: 2.5 0RF (DME) cpap supplies See Rx Instructions .Route .MEDSUPPLY Qty: 1 0RF Rx Instructions: As directed cpap supplies and/or prn albuterol sulfate 90 mcg/actuation HFA aerosol inhaler 2 puff inhalation QID PRN (Reason: shortness of breath or wheezing) Qty: 6.7 0RF Discharge Orders: Discharge Order (Routine); Ordered 08/06/24 Ordered By: Chris Gunderson Referrals: Chris Gunderson MD [Physician] - 09/15/24 3:00 pm Denise Hill APN, WHNP [Nurse Practitioner] - 08/20/24 8:15 am Discharge Diet: Usual diet Discharge Activity: Limit activity as instructed Patient Instructions: Acute Wound Care (DC), Bladder Sling for Women (DC), Anterior Vaginal Repair (DC), Posterior Vaginal Repair (DC), OB Discharge Report, OB Food/Drug Interaction Guide, Opioid Safety, Post Anesthesia Care Activity Restrictions/Additional Instructions: 1. Please call [facility] on next working day to make your post-operative appointment in 2 weeks. 2. Please stay home until you come back to the clinic on first post-hospatilization check up. 3. Please follow instructions on your medications CAREFULLY. 4. If you have abdominal incision, do not cover it unless dressing is necessary because of drainage. OK to shower, but avoid bath. Leave steri-strips until they fall off. If they are still on one week after surgery, you may remove them. 5. If you had vaginal surgery or vaginal repair, Dr. Gunderson may instruct you to take SITZ bath. 6. Yellow, blood tinged odorous vaginal discharge is usually normal after hysterectomy or vaginal surgeries. 7. No SEXUAL INTERCOURSE, tampons, or douches until you are completely released from the post-operative care. 8. Avoid constipation by eating right and maybe using some Metamucil or Milk of Magnesia. 9. All prescription refills are given during the working hours. Please do no wait till it runs out. Call the clinic at [phone] before your medication runs out. The clinic will get in touch with your doctor to prescribe medications if necessary. 10. Please remain within 40 mile radius from our hospital because emergencies do happen now and then during the post-operative period. 11. If you have stairs at home, take one step at a time slowly and minimize the number of trips. It helps to stay in one floor for the next few days. No lifting except what you can lift by one hand until you are released from the post-operative care. 12. Driving is discouraged until you are well healed. It may be 3-4 weeks before you feel strong enough to drive. You should be able to turn and look through the rear window without pain and you should be able to push the brake pedal very hard without pain before you drive. No fast rules, but SAFETY should be your primary concern. DO NOT drive if you are on sedating medications such as narcotics. 13. Call the clinic (during working hours) to make urgent appointment or go to the Emergency room, if any of the following occurs: i. Vaginal bleeding becomes heavy, more than a period. ii. Incision becomes red and sore, or drains pus. iii. Your TEMPERATURE is over 100.4F or you have chill. iv. IV site becomes red and swollen (a little ``knot?? is usually OK) v. Persistent nausea and vomiting vi. Persistent constipation or diarrhea vii. Rash or allergic reaction to medications. Discharge Attestations INSTRUCTIONAL COACH Time Spent in Discharge Care*: greater than 30 min Coding Level of Care Code Acute Code for Chg Fwd
[2024-08-06 10:32] VITALS: RESP 16
[2024-08-06] MEDS: lisinopril 10 mg Tablet PO (10:50)
[2024-08-06 14:45] VITALS: BP 134/67; PULSE 76; RESP 17; TEMP 36.6; O2SAT 96
== END 2024-08-06 14:45 | disposition home or self-care (01) ==
LOC: OBGYN 12:07
PROVIDERS: Admitting Provider Obstetrics & Gynecology; PCP Clinical Nurse Specialist Adult Health; Visit Provider Obstetrics & Gynecology
PROC: 0JQC0ZZ Repair Pelvic Region Subcutaneous Tissue and Fascia, Open Approach (ICD-10-PCS; CPT 57240; principal; 2024-08-05 10:05)
PROC: (CPT 57288; 2024-08-05 10:05)
DX: N81.10 Cystocele, unspecified (principal); N39.46 Mixed incontinence; G47.33 Obstructive sleep apnea (adult) (pediatric); K21.9 Gastro-esophageal reflux disease without esophagitis; I10 Essential (primary) hypertension; J45.909 Unspecified asthma, uncomplicated; E03.9 Hypothyroidism, unspecified
CPT/HCPCS: 57240; 57288; 36415; 51798; 80053; 81001; 85025; 85027; 85610; 86850; 86900; 87086; 93005; C1713; G0378; J0690; J1100; J1200; J1650; J1885; J2405; J2704; J2710; J3010; J3490; J7030; J7040

== ENCOUNTER → 2024-10-20 10:04 | Outpatient (BNVA) | payer MEDICARE, SELFPAY | PROVIDERS: PCP Clinical Nurse Specialist Adult Health; Visit Provider Clinical Nurse Specialist Adult Health | DX: M17.12 Unilateral primary osteoarthritis, left knee (principal); M25.762 Osteophyte, left knee | CPT/HCPCS: 73562 ==

== ENCOUNTER 2024-10-22 12:52 | Outpatient (CLI) | payer MEDICARE, SELFPAY ==
--- NOTE | 2024-10-22 13:40 | MM_ITS ---
WS: [id number] BILATERAL 3D TOMOSYNTHESIS DIGITAL SCREENING MAMMOGRAM WITH CAD CLINICAL INFORMATION: Z12.39 - Encounter for other screening for malignant neop... HISTORY: Screening mammogram. No current complaints. COMPARISON: 2023 TECHNIQUE: Bilateral CC and MLO views. FINDINGS: Fatty-replaced breasts bilaterally. No suspicious focal mass, asymmetry, calcifications, or architectural distortion. No evidence of malignancy. Loop recorder LEFT breast MM/MM scr BI tomosynthesis [id number] IMPRESSION: DENSITY: The breasts are almost entirely fatty. BI-RADS: 2 - Benign. FOLLOW UP: 1 Year Follow-up Recommend return to annual screening mammography.
--- NOTE | 2024-10-22 14:00 | XR_ITS ---
WS: [id number] SCREENING DEXA SCAN Ixchelsis CLINICAL INFORMATION: Z78.0 - Asymptomatic menopausal state COMPARISON: None. FINDINGS: The L1-L4 bone mineral density measures 0.958 g/cm2. This corresponds to a T score score of -1.9 and Z score of -1.0. Left femoral neck bone mineral density measures 0.758 g/cm2. This corresponds to a T score of -2.0 and Z score of -1.1. Right femoral neck bone mineral density measures 0.751 g/cm2. This corresponds to a T score -2.0of and Z score of -1.1. Mean femoral neck bone mineral density measures 0.755 g/cm2. This corresponds to a T score of -2.0 and Z score of -1.1. XR/XR DEXA axial skeleton* [id number] IMPRESSION: Osteopenia lumbar spine. Osteopenia femoral necks. Patient's FRAX calculated 10 year probability for major osteoporotic fracture i s 48.2% and osteoporotic hip fracture is 18.2%.
== END 2024-10-22 12:53 | disposition home or self-care (01) ==
PROVIDERS: PCP Clinical Nurse Specialist Adult Health; Visit Provider Clinical Nurse Specialist Adult Health
DX: Z12.31 Encounter for screening mammogram for malignant neoplasm of breast (principal); Z78.0 Asymptomatic menopausal state; R92.313 Mammographic fatty tissue density, bilateral breasts; Z96.89 Presence of other specified functional implants; M85.89 Other specified disorders of bone density and structure, multiple sites
CPT/HCPCS: 77063; 77067; 77080

== ENCOUNTER → 2024-10-23 10:58 | Outpatient (BNVA) | payer MEDICARE, SELFPAY | PROVIDERS: PCP Clinical Nurse Specialist Adult Health; Visit Provider Clinical Nurse Specialist Adult Health | DX: E55.9 Vitamin D deficiency, unspecified (principal); R51.9 Headache, unspecified | CPT/HCPCS: 82306 ==

== ENCOUNTER 2024-11-20 05:00 | Outpatient (RCR) | payer MEDICARE, SELFPAY | END 2024-12-20 23:59 | disposition home or self-care (01) | LOC: APT 05:00 | PROVIDERS: PCP Clinical Nurse Specialist Adult Health; Visit Provider Clinical Nurse Specialist Adult Health | DX: M17.12 Unilateral primary osteoarthritis, left knee (principal) | CPT/HCPCS: 97110; 97161 ==

== ENCOUNTER → 2024-12-01 14:09 | Outpatient (BNVA) | payer MEDICARE, SELFPAY | PROVIDERS: PCP Clinical Nurse Specialist Adult Health; Visit Provider Psychiatry & Neurology Neurology | DX: E53.8 Deficiency of other specified B group vitamins (principal) | CPT/HCPCS: 99212 ==

== ENCOUNTER → 2024-12-03 08:25 | Outpatient (BNVA) | payer MEDICARE, SELFPAY | PROVIDERS: PCP Clinical Nurse Specialist Adult Health; Visit Provider Clinical Nurse Specialist Adult Health | DX: E53.8 Deficiency of other specified B group vitamins (principal); R23.2 Flushing; I10 Essential (primary) hypertension; E03.9 Hypothyroidism, unspecified; R73.9 Hyperglycemia, unspecified | CPT/HCPCS: 80053; 80061; 81003; 82607; 83036; 84443; 85025 ==

== ENCOUNTER 2024-12-21 05:00 | Outpatient (RCR) | payer MEDICARE, SELFPAY | END 2025-01-19 23:59 | disposition home or self-care (01) | LOC: APT 05:00 | PROVIDERS: PCP Clinical Nurse Specialist Adult Health; Visit Provider Clinical Nurse Specialist Adult Health | DX: M17.12 Unilateral primary osteoarthritis, left knee (principal) | CPT/HCPCS: 97110 ==

== ENCOUNTER 2024-12-24 10:00 | Outpatient (CLI) | payer MEDICARE, SELFPAY ==
--- NOTE | 2024-12-24 10:03 | XR_ITS ---
WS: [id number] XR lumbar spine 2-3V* [id number] REASON FOR EXAM: M54.50 - Low back pain, unspecified FINDINGS: Mild rotatory levoscoliosis. Mild exaggeration of the lumbar lordosis. Mild to moderate compression deformity of the superior endplate of L3. Mild compression deformity at the superior endplate of L4. Remaining vertebral bodies demonstrate no significant compression deformity or focal lesion. Disc spaces are intact and relatively well preserved with mild narrowing of the L5-S1 disc space. No spondylolysis. No significant spondylolisthesis. Significant degenerative arthropathy in the facet joints L4-S1. Significant periarticular sclerosis along the sacroiliac joints. No fusion or bridging. No sacral insufficiency fracture. XR/XR lumbar spine 2-3V* [id number] IMPRESSION: Compression deformities of the L3 and L4 vertebral bodies of unknown chronicity . Cannot exclude subacute compression fracture. Chronic sacroiliitis as above.
== END 2024-12-24 10:01 | disposition home or self-care (01) ==
PROVIDERS: PCP Clinical Nurse Specialist Adult Health; Visit Provider Family Medicine
DX: M47.897 Other spondylosis, lumbosacral region (principal); M48.56XA Collapsed vertebra, not elsewhere classified, lumbar region, initial encounter for fracture; M41.86 Other forms of scoliosis, lumbar region; R93.7 Abnormal findings on diagnostic imaging of other parts of musculoskeletal system; M46.1 Sacroiliitis, not elsewhere classified
CPT/HCPCS: 72100

== ENCOUNTER 2025-01-13 06:00 | Outpatient (CLI) | payer MEDICARE, SELFPAY | END 2025-01-13 06:01 | disposition home or self-care (01) | LOC: RAD 01-16 07:11 | PROVIDERS: PCP Clinical Nurse Specialist Adult Health; Visit Provider Clinical Nurse Specialist Adult Health | DX: L74.0 Miliaria rubra (principal); R23.3 Spontaneous ecchymoses; L82.1 Other seborrheic keratosis; D22.5 Melanocytic nevi of trunk; L81.4 Other melanin hyperpigmentation; L57.8 Other skin changes due to chronic exposure to nonionizing radiation; X32.XXXA Exposure to sunlight, initial encounter; L57.0 Actinic keratosis | CPT/HCPCS: 17000; 99203 ==

== ENCOUNTER → 2025-02-24 08:33 | Outpatient (BNVA) | payer MEDICARE, SELFPAY | PROVIDERS: PCP Clinical Nurse Specialist Adult Health; Visit Provider Clinical Nurse Specialist Adult Health | DX: E11.9 Type 2 diabetes mellitus without complications (principal); E55.9 Vitamin D deficiency, unspecified; J45.40 Moderate persistent asthma, uncomplicated | CPT/HCPCS: 80053; 80061; 82306; 82607; 83036; 85025 ==

== ENCOUNTER → 2025-03-30 09:43 | Outpatient (BNVA) | payer MEDICARE, SELFPAY | PROVIDERS: PCP Clinical Nurse Specialist Adult Health; Visit Provider Clinical Nurse Specialist Adult Health | DX: R25.2 Cramp and spasm (principal) | CPT/HCPCS: 80048; 83735 ==

== ENCOUNTER 2025-05-18 14:07 | Outpatient (CLI) | payer MEDICARE, SELFPAY ==
--- NOTE | 2025-05-18 14:14 | XRR_ITS ---
PROCEDURE INFORMATION: Exam: XR Thoracic Spine Exam date and time: 05/18/2025 2:30 PM Age: 69 years old Clinical indication: Pain in thoracic spine; Prior surgery; Surgery date: 6+ months; Surgery type: Implantable loop recorder placement; Ongoing pain in the middle of her spine for around 1 year, HX of herniated disc in lumbar spine; Additional info: M54.6 - pain in thoracic spine TECHNIQUE: Imaging protocol: Radiologic exam of the thoracic spine. Views: 3 views. COMPARISON: CR XR lumbar spine 2-3V* [id number] 12/24/2024 10:09 AM FINDINGS: Tubes, catheters and devices: A loop recorder device is seen projecting over the left lung base. Bones/joints: There is diffuse osteopenia. There is very mild anterior wedge deformity of the T12 vertebral body, age indeterminate. This appears new compared to the prior chest radiograph from December 10, 2023. Remaining vertebral bodies are normal in height. Diffuse degenerative changes are noted. Soft tissues: Unremarkable. XR/XR thoracic spine 3V* [id number] IMPRESSION: 1. Very mild anterior wedge deformity of the T12 vertebral body, age indeterminate, but new since December 10, 2023. If clinically indicated, MRI may be helpful for further evaluation. 2. Diffuse osteopenia with degenerative disc disease and spondylosis throughout the thoracic spine.
== END 2025-05-18 14:08 | disposition home or self-care (01) ==
PROVIDERS: PCP Clinical Nurse Specialist Adult Health; Visit Provider Clinical Nurse Specialist Adult Health
DX: M54.6 Pain in thoracic spine (principal); J45.40 Moderate persistent asthma, uncomplicated; E11.9 Type 2 diabetes mellitus without complications; Z23 Encounter for immunization; R35.0 Frequency of micturition; S32.030A Wedge compression fracture of third lumbar vertebra, initial encounter for closed fracture; X58.XXXA Exposure to other specified factors, initial encounter
CPT/HCPCS: 72072; 80053; 81000; 82306; 83036; 85025; 87086

== ENCOUNTER 2025-06-02 11:48 | Outpatient (CLI) | payer MEDICARE, SELFPAY ==
--- NOTE | 2025-06-02 13:00 | CTR_ITS ---
PROCEDURE INFORMATION: Exam: CT Thoracic Spine Without Contrast Exam date and time: 06/02/2025 12:29 PM Age: 69 years old Clinical indication: Pain in thoracic spine; Prior surgery; Surgery date: 6+ months; Surgery type: Loop recorder, right shoulder; Additional info: S22.080a - wedge compression fracture of t11-t12 vertebra. . . TECHNIQUE: Imaging protocol: Computed tomography of the thoracic spine without contrast. Radiation optimization: All CT scans at this facility use at least one of these dose optimization techniques: automated exposure control; mA and/or kV adjustment per patient size (includes targeted exams where dose is matched to clinical indication); or iterative reconstruction. COMPARISON: CR XR thoracic spine 3V* [id number] 05/18/2025 2:30 PM RADIATION DOSE METRICS: Total DLP (mGy-cm): 657.31 FINDINGS: Bones/joints: The spine is imaged from C5 through L1. AP alignment is normal. There is increased lower thoracic kyphosis with slight anterior wedging of the T7 through T9 vertebra, consistent with old compression injuries. This is unchanged as compared to the prior plain films. No acute fracture or bone marrow replacement is suspected. There is narrowing of the C5-C6 and C6-C7 disc spaces. Narrowing of the C5-C6 through T10-11 disc spaces is also noted. At C6-C7 slight vacuum disc phenomenon is noted with a shallow posterior annular bulge showing calcification. No neural impingement is suspected. Additional vacuum disc phenomena seen at T5-6 and T7-8. No bony foraminal stenosis is demonstrated throughout the volume image. There is no suspected neural impingement. Soft tissues: Unremarkable. Vasculature: Mild aortic atheromatous calcifications are seen without aneurysm or dissection. Visible portions of the lung are remarkable for some dependent atelectasis in both lung bases with some minimal subpleural honeycombing in the right sulcus. Nonobstructing left nephrolithiasis is noted where an irregular 6 mm stone is identified in the midpole. CT/CT thoracic spin wo con* [id number] IMPRESSION: 1. There is no acute fracture, lytic, or blastic lesion. 2. Remote mild anterior wedging of T7 through T9. 3. No significant foraminal stenosis or clinically significant suspected disc protrusion. Degenerative changes as noted above. 4. Nonobstructing left nephrolithiasis.
[2025-06-02 16:22] LABS: Hematocrit 46.6 % (36-47); Hemoglobin 15.40 g/dL (11.27-16.99); Mean Corpuscular HGB Conc 33.0 g/dL (30-55); Mean Corpuscular Hemoglobin 30.4 pg (27-33); Mean Corpuscular Volume 92.1 fl (85-98); Nucleated Red Blood Cells % 0 %; Platelet Count 206 10^3/cmm (157-399); Red Blood Count 5.06 10^6/uL (3.85-5.65); White Blood Count 8.89 10^3/uL (3.29-11.43)
[2025-06-03 16:00] LABS: Bermuda Class 0/1; Cladosporium herbarum Class 0/1; Common Ragweed (Short) (W1) Ig 5.21 kU/L; Cottonwood Class 1; Dermatophagoides Class 3; Dermatophagoides Farinae (D2) 9.78 kU/L; Maple (Box Elder) (T1) Ige 0.18 kU/L; Maple leaf sycamore Tree 0.14 kU/L; Maple leaf sycamore Tree Class 0/1; Mouse Urine Proteins Class 0/1; Oak Class 0/1; Pecan/Hickory Tree 0.17 kU/L; Pecan/Hickory Tree Class 0/1; Penicillium Class 0; Ragweeed Class 3; Rough Marsh Elder (W16) Ige 0.40 kU/L; Rough Marsh Elder Class 1; Russian Thistle (W11) IgE 0.56 kU/L; White Ash Tree 2.35 kU/L; White Ash Tree Class 2
== END 2025-06-02 11:49 | disposition home or self-care (01) ==
PROVIDERS: Internal Medicine; PCP Clinical Nurse Specialist Adult Health; Visit Provider Clinical Nurse Specialist Adult Health
DX: J45.40 Moderate persistent asthma, uncomplicated (principal); G47.33 Obstructive sleep apnea (adult) (pediatric); Z99.89 Dependence on other enabling machines and devices; J30.81 Allergic rhinitis due to animal (cat) (dog) hair and dander; J44.9 Chronic obstructive pulmonary disease, unspecified; T78.40XA Allergy, unspecified, initial encounter; X58.XXXA Exposure to other specified factors, initial encounter; S22.080A Wedge compression fracture of T11-T12 vertebra, initial encounter for closed fracture
CPT/HCPCS: 36415; 72128; 82103; 85025; 86003; 99204; Q3014

== ENCOUNTER → 2025-07-01 10:53 | Outpatient (BNVA) | payer MEDICARE, SELFPAY | PROVIDERS: PCP Clinical Nurse Specialist Adult Health; Visit Provider Clinical Nurse Specialist Adult Health | DX: E55.9 Vitamin D deficiency, unspecified (principal); I10 Essential (primary) hypertension; E53.8 Deficiency of other specified B group vitamins | CPT/HCPCS: 80053; 80061; 82306; 82607; 84443; 85025 ==

== ENCOUNTER 2025-07-21 12:28 | Outpatient (CLI) | payer MEDICARE, SELFPAY | END 2025-07-21 12:29 | disposition home or self-care (01) | LOC: RT 12:31 | PROVIDERS: PCP Clinical Nurse Specialist Adult Health; Visit Provider Internal Medicine | DX: J44.9 Chronic obstructive pulmonary disease, unspecified (principal) | CPT/HCPCS: 94060 ==

== ENCOUNTER 2025-07-22 10:41 | Outpatient (RCR) | payer MEDICARE, SELFPAY | END 2025-07-22 23:59 | disposition home or self-care (01) | LOC: APT 10:41 | PROVIDERS: PCP Clinical Nurse Specialist Adult Health; Visit Provider Clinical Nurse Specialist Adult Health | DX: S22.000D Wedge compression fracture of unspecified thoracic vertebra, subsequent encounter for fracture with routine healing (principal); X58.XXXD Exposure to other specified factors, subsequent encounter | CPT/HCPCS: 97110; 97161 ==